=== PATIENT | female | born 1975 | race Two or more races ===

== ENCOUNTER 2018-04-07 06:18 | Inpatient (IN) | payer OTHER ==
[~2018-04-07] VITALS: Ht 149.9 cm; Wt 83.5 kg
[2018-04-07] VITALS (16 sets, daily range): BP systolic 105–137; BP diastolic 63–88
[2018-04-07] MEDS ORDERED: NKM (06:59)
[2018-04-07] MEDS ORDERED: ceFAZolin sod 1 GM in NS 55 ML IVPB ONE (07:00)
[2018-04-07] MEDS ORDERED: Thrombin 5000 units TOPIC ONE (07:04)
[2018-04-07] MEDS ORDERED: Bupivacaine w/Epi 0.5% 30ml Vial INJ ONE (07:04)
[2018-04-07] MEDS ORDERED: Bacitracin 50000 Units Vial ONE (07:04)
[2018-04-07] MEDS ORDERED: Gelfoam Size TOPIC ONE (07:04)
[2018-04-07] MEDS ORDERED: Zemuron 50mg/5ml Inj IV ONE (07:04)
[2018-04-07] MEDS ORDERED: Bupivacaine w/Epi 0.25% 30ml Vial INJ ONE (07:05)
[2018-04-07] MEDS ORDERED: Heparin 5000 units/ml inj ONE (07:06)
[2018-04-07] MEDS ORDERED: LR 1000ml 1,000 ML IVLG SCH (07:07)
--- NOTE | 2018-04-07 07:11 | Anethesia Preoperative Eval ---
Anesthesia Pre-op PMH/ROS General Date of Evaluation: Apr 07, 2018 Time of Evaluation: 07:51 Anesthesiologist: Scott ASA Score: ASA 2 Mallampati Score Class I : Soft palate, uvula, fauces, pillars visible Class II: Soft palate, uvula, fauces visible Class III: Soft palate, base of uvula visible Class IV: Only hard plate visible Mallampati Classification: Class I Surgeon: Marissa Diagnosis: Back Pain Surgical Procedure: ALIF, PSF L5-S1 Anesthesia History: none Family History: no anesthesia problems Allergies: Coded Allergies: No Known Allergies (Unverified , 04/07/18) Medications: see eMAR Patient NPO?: Yes NPO Date: Apr 06, 2018 NPO Time: 2200 Past Medical History Cardiovascular: Reports: HTN Other: obesity - BMI 37 PSxH Narrative: Cholecystectomy Anesthesia Pre-op Phys. Exam Physician Exam Last Vital Signs Date Time Temp Pulse Resp B/P (MAP) Pulse Ox O2 Delivery O2 Flow Rate FiO2 04/07/18 06:45 Room Air 04/07/18 06:40 97.4 69 18 137/88 (104) 99 Constitutional: NAD Neurologic: CN 2-12 intact Cardiovascular: RRR Respiratory: CTA Gastrointestinal: S/NT/ND Airway Exam Mallampati Score: Class I MO: full ROM: full Teeth: intact Anesthesia Pre-op A/P Risk Assessment & Plan Assessment: ASA 2 Plan: GA, SED, GlideScope Go Status Change Before Surgery: No Pre-Antibiotics Dru Grams Ancef IV Time Given: 08:06 Jamie Chavez MD Apr 07, 2018 07:11
[2018-04-07] MEDS ORDERED: Atropine Sulfate 0.4mg/ml inj IVP PRN (07:15)
[2018-04-07] MEDS ORDERED: oxyCODONE HCL/Acetaminophen 5/325mg ORAL PRN (07:15)
[2018-04-07] MEDS ORDERED: Acetaminophen (Non formulary) 100 ML IV ONE (07:15)
[2018-04-07] MEDS ORDERED: HYDROcodone/Acetamin 7.5/325 tab ORAL PRN (07:15)
[2018-04-07] MEDS ORDERED: DiphenhydrAMINE 50mg/ml Inj IVP PRN (07:15)
[2018-04-07] MEDS ORDERED: Midazolam 2mg/2ml Inj IVP PRN (07:15)
[2018-04-07] MEDS ORDERED: Norco 5mg/325mg tab ORAL PRN (07:15)
[2018-04-07] MEDS ORDERED: Metoclopramide 10mg/2ml Inj IVP PRN ×2 (07:15→14:15)
[2018-04-07] MEDS ORDERED: Ketorolac 30mg Inj IV PRN ×2 (07:15)
[2018-04-07] MEDS ORDERED: fentaNYL 100 mcg/2 mL IV PRN (07:15)
[2018-04-07] MEDS ORDERED: LORazepam Inj 2mg/ml 1ml IV PRN (07:15)
[2018-04-07] MEDS ORDERED: Hydromorphone 0.5mg/0.5ml inj IVP PRN (07:15)
[2018-04-07] MEDS ORDERED: Meperidine 50mg/ml Inj(FOR RIGORS ONLY) IVP PRN (07:15)
[2018-04-07] MEDS ORDERED: Lidocaine 1% MPF 10mg/ml 5ml ONE (07:27)
[2018-04-07] MEDS ORDERED: Dexamethasone 4mg/ml vial ONE (07:27)
[2018-04-07] MEDS ORDERED: Sodium Chloride 10ml vial INJ ONE (07:27)
[2018-04-07] MEDS ORDERED: fentaNYL 100 mcg/2 mL IV ONE ×3 (07:30→12:57)
[2018-04-07] MEDS ORDERED: Lidocaine 1% Plain 30 ml INJ ONE ×2 (07:31→10:30)
--- NOTE | 2018-04-07 07:47 | Immediate Post-Op Evaluation ---
Immediate Post-Op Evalulation Immediate Post-Op Evalulation Procedure: BISHOP CALDERON L5-S1 Date of Evaluation: Apr 07, 2018 Time of Evaluation: 13:55 IV Fluids: 900 LR Blood Products: 0 Estimated Blood Loss: 125 Urinary Output: 300 Blood Pressure Systolic: 119 Blood Pressure Diastolic: 73 Pulse Rate: 78 Respiratory Rate: 16 O2 Sat by Pulse Oximetry: 100 Temperature (Fahrenheit): 98.6 Pain Score (1-10): 2 Nausea: No Vomiting: No Complications 0 Patient Status: awake, reacts, patent, extubated, none Hydration Status: adequate Dru Grams Ancef IV Given Within 1 Hr of Incision: Yes Time Given: 08:06 Jamie Chavez MD Apr 07, 2018 07:47
[2018-04-07] MEDS ORDERED: Propofol 200mg/20ml IV ONE (07:51)
[2018-04-07] MEDS ORDERED: Sterile Water Irrig 1000ml IRRIG ONE (07:51)
[2018-04-07] MEDS ORDERED: NS Irrig 1000ml ONE (07:51)
--- NOTE | 2018-04-07 08:13 | Pre-Procedure Note/Attestation ---
Pre-Procedure Note/Attestation Complete Prior to Procedure Procedure Narrative: L5s1 ant post fusion with decompression Indications for Procedure Pre-Operative Diagnosis: L5s1 spodylolytic spondylolisthesis Attestation I attest that I discussed the nature of the procedure; its benefits; risks and complications; and alternatives (and the risks and benefits of such alternatives ), prior to the procedure, with the patient (or the patient's legal commercial representative). I attest that, if there was a reasonable possibility of needing a blood transfusion, the patient (or the patient's legal commercial representative) was given the [facility] standardized written summary, pursuant to the Sergey Anthony Blood Safety Act ([place] Health and Safety Code # 1645, as amended). I attest that I re-evaluated the patient just prior to the surgery and that there has been no change in the patient's H&P, except as documented below: Bran Ann MD Apr 07, 2018 08:13
--- NOTE | 2018-04-07 10:15 | Consultation ---
DATE OF CONSULTATION: 04/07/2018 VASCULAR SURGERY CONSULTATION CONSULTING PHYSICIAN: Armen Montanez M.D. HISTORY OF PRESENT ILLNESS: The patient is a 42-year-old female, who was admitted to undergo anterior lumbar interbody fusion of L5-S1 as determined by her spine surgeon, Dr. rBan Ann. Prior to today, the patient had received at her home my separate informed consent form, which introduced me and explained my role in the approach for the anterior lumbar spine surgery. It also outlined the possible risks and complications including, but not limited to hemorrhage, need for blood transfusions, wound infection, bowel or ureter injury, arterial or venous injury or thrombosis, and the remote chance of , etc. The patient read the form, signed it, and sent it back to my office. In addition, I telephoned the patient where the procedure was discussed. Today, she was seen in the preoperative holding area with the content of the form were again reviewed and any further questions were answered. She was shown the site of the incision. She had palpable bilateral dorsalis pedis pulses. She was 4 feet 11 inches tall, weighing approximately 172 pounds, giving her a BMI of 35. Her hematocrit was 37 with a platelet count of 255,000. Her INR was 1.1 with a PTT of 23 seconds. That consent was signed once again with a nurse witnessed and signature as well and then placed into the chart. She fully understood and wished to proceed. Armen Montanez M.D. DR: MEGHAN JOB#: [id number] CC:
[2018-04-07] MEDS ORDERED: Vancomycin 1gm inj IVPB ONE (10:16)
--- NOTE | 2018-04-07 10:59 | Brief Operative Note ---
Immediate Post Operative Note Operative Note Pre-op Diagnosis: L5s1 spodylolytic spondylolisthesis Procedure: L5S1 ant Post fusion with decompression Post-op Diagnosis: same as pre-op Findings: consistent w/pre-op dx studies Surgeon: josefina Additional Surgeons: claudia Anesthesiologist: jia dunbar Anesthesia: general Specimen: yes Complications: none Condition: stable Fluids: 1200 Estimated Blood Loss: volume - 150 Drains: none Implant(s) used?: Yes - 4web cage, spinal element Pedicle screw system Bran Ann MD Apr 07, 2018 10:59
[2018-04-07] MEDS ORDERED: Milk of Magnesia 30ml Ud ORAL PRN (14:15)
[2018-04-07] MEDS ORDERED: D5 1/2NS 1,000 ML IV SCH (15:20)
--- NOTE | 2018-04-07 15:45 | Operative Note - Dictated ---
DATE OF OPERATION: 04/07/2018 OPERATION: 1. Muscle sparing anterior abdominal retroperitoneal approach for anterior lumbar interbody fusion. 2. Plastic closure repair of abdominal wound. CO-SURGEONS: 1. Armen Montanez M.D. 2. Bran Ann M.D. ANESTHESIA: General PREOPERATIVE DIAGNOSIS: Degenerative disk disease, L5-S1. POSTOPERATIVE DIAGNOSIS: Degenerative disk disease, L5-S1. PROCEDURE: Prior to surgery, the patient had received at her home my separate informed consent form which introduced me and explained my role in the approach for the anterior lumbar spine surgery. It also outlined the possible risks and complications, including, but not limited to hemorrhage, need for blood transfusions, wound infection, bowel or ureter injury, arterial or venous injury or thrombosis, and the remote chance of etc. The patient read the form, signed it and sent it back to my office. In addition, I telephoned the patient where the procedure was discussed. Today, she was seen in the preoperative holding area with the content of the form were again reviewed and any further questions were answered. She was shown the site of the incision. She had palpable bilateral dorsalis pedis pulses. That consent was signed once again with a nurse witness and signature as well and then placed into the chart. She fully understood and wished to proceed. A preoperative vascular surgery consultation report was dictated. DESCRIPTION OF PROCEDURE: The patient was taken into the operating room, placed in supine position. Using an endotracheal tube, she was placed under general anesthesia without difficulty. Her abdomen was prepped and draped in usual sterile manner. An appropriate time-out was obtained. A transverse incision was made in the left lower quadrant from the midline and carried down through the subcutaneous tissue down to the rectus fascia. Hemostasis was achieved using electrocautery. The rectus fascia was incised transversely and elevated off the anterior surface of the muscle for a distance of approximately 4 cm both caudad and cephalad. This would allow for retraction of the rectus muscle laterally later in the case in order to obtain direct anterior-posterior approach to the anterior surface of the spine. The inferior epigastric vessels were identified and preserved. Laterally, the retroperitoneal space was entered down to the left psoas muscle. The left ureter was identified and protected as it was mobilized with the peritoneum more medially until the left iliac artery was identified. Deep self-retaining retractors such as Cowley and Bookwalter were utilized to hold the abdominal wall and peritoneal contents in place while further dissection was carried out. The capsule blunt dissection was carried out below the bifurcation of the iliac vessels with several medial branches of the iliac vein were taken between hemoclips and transected. The middle sacral artery was taken between hemoclips and transected. Careful blunt dissection was carried out to preserve the sympathetic chains laterally as well as the parasympathetic plexus which lies anteriorly along the surface of the fifth lumbar vertebra. Further careful blunt dissection was utilized to expose the anterior surface of the multiple vertebral bodies and intervening disk space. Several retractor blades were now placed in all quadrants with the rectus muscle now retracted laterally, which allowed exposure and direct anterior-posterior approach to the anterior surface of the spine. The spine surgeon then proceeded to perform diskectomy and fusion which would be dictated in a separate report by the spine surgeon, Dr. Ann. Antibiotic irrigation had been carried out. The retractor blades were removed. The integrity of the iliac vessels were then checked to make sure that there was no tear or thrombosis of the vein and that there was adequate flow through the artery with no evidence of spasm or thrombosis. A further check for hemostasis was made and the integrity of the ureter was verified. The peritoneum was allowed to return to its anatomical location and then the anterior rectus sheath approximated using continuous running suture of number 1 Vicryl. The subcutaneous tissues were irrigated using dilute Betadine solution as well as antibiotic solution. Hemostasis noted to be achieved. Vancomycin powder was left in the wound. Plastic closure repair of the abdominal wound was continued using 2-0 Vicryl followed by skin approximation using continuous subcuticular suture of 3-0 Monocryl. Steri-Strips were applied. Dry sterile gauze OpSite dressings were applied. The sponge, pad, needle, and instrument counts reported as correct. Estimated blood loss was less than 50 mL. There were no complications during this part of the procedure. At completion of this part of the procedure, the patient had maintenance of palpable bilateral dorsalis pedis pulses and the pulse oximeter registered 99% on the left foot. The patient will remain in the operating room, undergo posterior instrumentation by the spine surgeon. Armen Montanez M.D. DR: Jose JOB#: [id number] CC:
[2018-04-07] MEDS: ceFAZolin sod 1 GM in D5W 55 ML IV SCH (15:57)
--- NOTE | 2018-04-07 16:30 | Operative Note - Dictated ---
DATE OF OPERATION: 04/07/2018 PREOPERATIVE DIAGNOSIS: Spinal foraminal stenosis with unstable spondylolisthesis at L5-S1. POSTOPERATIVE DIAGNOSIS: Spinal foraminal stenosis with unstable spondylolisthesis at L5-S1. PROCEDURES: 1. Wide and radical diskectomy at L5-S1 performed through an anterior approach for decompression of neural foramen. 2. Placement of interbody fusion device (4-WEB). 3. Anterior instrumentation with kickout plate Eminent Spine. 4. Use of BMP for fusion purposes. 5. Use of allograft (Signafuse). 6. Use of fluoroscopy. 7. Neurodiagnostic monitoring. ESTIMATED BLOOD LOSS: Minimal. SURGEON: Bran Ann M.D. VASCULAR CO-SURGEON: Armen Montanez M.D. ANESTHESIOLOGIST: Jamie Chavez M.D. ANESTHESIA TYPE: General endotracheal anesthesia. COMPLICATIONS: None. INDICATIONS: The patient is a very pleasant woman with intractable back pain. She does have radicular symptoms into the lower extremities, primarily on the right side. Conservative care has been attempted; however, despite this, she remains with mechanical back pain and radiating symptoms. She does have a unstable spondylolisthesis, spondylolytic type at the L5-S1 level. Surgical intervention was contemplated and she elected to proceed. RISKS NOTE: The patient was explained in detail risks, benefits of surgery to include, but not be limited to those of bleeding, infection, damage to nerves, vessels, tendons, anesthetic risk, allergic reaction, aspiration, possibly . The patient understood and wished to proceed. OPERATIVE PROCEDURE IN DETAIL: The patient was taken the operating suite after Garcia catheter was placed. She was positioned supine onto a radiolucent table. The abdomen was prepped and draped in usual sterile fashion. Anterior transverse incision was performed by Dr. Montanez and approach will be dictated separately by him. At this point, retractors were placed in the crotch of the common iliac vessels flanking either side of the disk at L5-S1. The L5-S1 level was verified radiographically. A scalpel was used to incise the anterior anulus of L5 and S1. End-plate Jeffries and curettes were used to debulk the disk all the way down to the posterior longitudinal ligament. Posterior anulus was removed. Kerrison punches as well as curettes were used with pituitaries to remove all disk material. At this point, the endplates were prepared using endplate rasps and a back hoe. At this point, once satisfied with the endplate preparation, multiple different sized implants were trialed. Please note that the patient does have a spondylolytic type of spondylolisthesis and every attempt was made not to over distract the disk space. Please note however that the bony apposition was very very difficult to obtain with an undersized implants and ultimately a 12 degree x 12 mm high medium-size implant was chosen. The implant manufactured by [employer] was packed centrally with a combination of BMP and Signafuse. Once the implant was inserted, it was noted to have a reasonable friction fit. At this point, a anterior plate was applied at L5 under fluoroscopic imaging in order to prevent dislodgement of the implant. Copious irrigation was performed. The procedure was performed under image guidance. Once ready to close the vascular surgeon, Dr. Montanez then proceeded to doing multiple layered closure, which will be dictated separately. Estimated blood loss minimal. Complications, none. Bran Mian Ann DR: Renny JOB#: [id number] CC:
[2018-04-07] MEDS: Hydromorphone 0.5mg/0.5ml inj SUBQ PRN (16:35)
[2018-04-07] MEDS: Docusate 100mg cap ORAL SCH (17:48)
[2018-04-07] MEDS ORDERED: TransDerm Scop 1mg/72HR Patch TDERMAL SCH ×2 (19:00→19:15)
--- NOTE | 2018-04-07 20:15 | Operative Note - Dictated ---
DATE OF OPERATION: 04/07/2018 SURGEON: Bran Ann M.D. FINGER WAVER: None. ANESTHESIOLOGIST: Jamie Chavez M.D. ANESTHESIA TYPE: General endotracheal anesthesia. PREOPERATIVE DIAGNOSIS: Unstable spondylolisthesis at L5-S1, status post anterior diskectomy fusion requiring posterior stabilization. POSTOPERATIVE DIAGNOSIS: Unstable spondylolisthesis at L5-S1, status post anterior diskectomy fusion requiring posterior stabilization. PROCEDURE: 1. Posterior spinal fusion, nonsegmental at L5-S1, using cannulated pedicle screw system (spinal elements). 2. Posterior spinal fusion at L5-S1. 3. Bilateral foraminotomy at L5-S1 from an outside-in approach. 4. Use of fluoroscopy. 5. Neurodiagnostic monitoring with pedicle screw stimulation. 6. Use of allograft (Bacterin bone strip). ESTIMATED BLOOD LOSS: Minimal. COMPLICATIONS: None. FINDINGS: Stable fixation at L5-S1 bilaterally with excellent foraminal decompression. INDICATIONS: The patient is a 42-year-old with unstable spondylolisthesis. She underwent prior anterior fixation. Unfortunately, she was still deemed to be unstable and a posterior fixation would be required. The patient understood and wished to proceed. OPERATIVE PROCEDURE IN DETAIL: Under benefits of general anesthesia, the patient was turned prone onto a Jimmy frame. All bony prominences were well padded. The back was prepped and draped in usual sterile fashion. Under fluoroscopic guidance, L5-S1 level was marked out, 6 cm lateral of midline and a vertical incision was made after the skin was infiltrated with lidocaine and Marcaine with epinephrine. Incision was carried out through subcutaneous and a traditional Zara approach was used. The interval between the longissimus and multifidus muscles were identified and a blunt dissection was carried out between these two after the fascia had been incised with the Bovie. Blunt dissection allowed for palpation of the transverse process of L5 and sacral ala. Radiographically, this was verified. Self-retaining retractors were put in place. Soft tissue overlying the bone and periosteum of the transverse process and sacral ala were removed with Bovie. Drilling was allowed for fusion purposes. At this point, using anatomic and fluoroscopic landmarks, the pedicle screw of L5 and S1 were serially drilled, probed, and palpated with a ball tip probe, tapped and the appropriate size pedicle screws were placed. Please note that prior to final placement of the screws, a curved curette was utilized to remove the ligamentum adjacent to the neural foramen. The Kerrison punch was then utilized in combination with a high-speed drill to drill out the lateral portion of the facet and the undersurface of the facet/foramen was removed with Kerrison punch, which allowed for excellent lateral decompression of the foramen. The foramen was probed with a right-angled probe and noted to be completely patent at this point. FloSeal was applied. Hemostasis was achieved. Appropriate sized screws were placed through the bone graft, which was deployed between the screw head and the bony bed for which the bone graft was applied to. At this point, copious irrigation was performed once satisfied with this pedicle screw stimulation tested that the screws were appropriately placed. The S1 screw impedance was at 14, however, radiographically was okay and it was felt to be an appropriate screw placement. At this point, the appropriate sized mari was applied. Reduction maneuver was achieved. Both locking caps were applied and torqued to the appropriate levels. Reduction and compression was achieved using a in situ compressor. The L5 screw head was also then tightened and torqued to the appropriate level. Once satisfied with the construct, copious irrigation was performed and layered closure was performed using #1 Vicryl through the deep fascia as well as superficial fascia and subcutaneous closure using 2-0 Vicryl. Dermabond was applied. Attention was then turned to the left side and in an identical fashion, incision was made, approach was made, retractors were placed, decompression was achieved, screws were applied, and tested and locking cap was applied. Overall, the final closure was also performed in similar fashion. After copious irrigation was achieved, final closure was completed. Dermabond was applied to both wounds. Sterile dressing was applied. Tegaderm dressing was applied. The patient was then turned onto her back, awakened, extubated, and transferred to recovery room in stable condition. Bran Ann M.D. DR: KRUNAL JOB#: [id number] CC: [email or web address]
[2018-04-07 20:27] LABS: HEMATOCRIT 36.5 % (37.0-47.0); HEMOGLOBIN 12.1 G/DL (12.0-16.0); MEAN CORPUSCULAR VOLUME 77 FL (80-99); PLATELET COUNT 275 K/UL (150-450); RED BLOOD COUNT 4.75 M/UL (4.20-5.40); RED CELL DISTRIBUTION WIDTH 11.9 % (11.6-14.8); WHITE BLOOD COUNT 12.8 K/UL (4.8-10.8)
--- NOTE | 2018-04-07 20:32 | Cardiology Progress Note ---
Assessment/Plan Assessment/Plan doing well post op needs to ambuaote when allow eat adn have bm subsequently dc accuchjeks ordered [id number] Objective Last 24 Hour Vital Signs Date Time Temp Pulse Resp B/P (MAP) Pulse Ox O2 Delivery O2 Flow Rate FiO2 04/07/18 20:18 98.1 77 19 116/65 (82) 99 04/07/18 17:45 98.2 73 17 112/63 (79) 99 04/07/18 16:45 97.4 73 16 106/68 (81) 98 04/07/18 15:45 98.4 85 19 105/63 (77) 99 04/07/18 15:15 Nasal Cannula 3.0 Nasal Cannula 3.0 04/07/18 15:15 98.6 89 18 118/66 (83) 98 04/07/18 14:54 88 18 115/74 100 Nasal Cannula 3 04/07/18 14:45 98.4 88 16 123/79 100 Nasal Cannula 3 04/07/18 14:40 82 19 115/72 100 Nasal Cannula 3 04/07/18 14:30 88 14 121/74 100 Nasal Cannula 3 04/07/18 14:25 93 19 128/74 100 Nasal Cannula 3 04/07/18 14:15 99 17 126/79 100 Simple Mask 6 04/07/18 14:00 83 16 125/77 100 Simple Mask 6 04/07/18 13:55 84 18 125/76 100 Simple Mask 6 04/07/18 13:50 89 22 123/74 100 Simple Mask 6 04/07/18 13:44 98.6 78 16 119/73 100 Simple Mask 6 04/07/18 13:42 78 16 100 04/07/18 06:45 Room Air 04/07/18 06:40 97.4 69 18 137/88 (104) 99 Intake and Output 04/06/18 04/07/18 19:00 07:00 # Voids 1 Laboratory Tests Test 04/07/18 06:25 04/07/18 20:20 Urine HCG, Qualitative Negative (NEGATIVE) White Blood Count Pending Red Blood Count Pending Hemoglobin Pending Hematocrit Pending Mean Corpuscular Volume Pending Mean Corpuscular Hemoglobin Pending Mean Corpuscular Hemoglobin Concent Pending Red Cell Distribution Width Pending Platelet Count Pending Mean Platelet Volume Pending Neutrophils (%) (Auto) Pending Lymphocytes (%) (Auto) Pending Monocytes (%) (Auto) Pending Eosinophils (%) (Auto) Pending Basophils (%) (Auto) Pending Sodium Level Pending Potassium Level Pending Chloride Level Pending Carbon Dioxide Level Pending Blood Urea Nitrogen Pending Creatinine Pending Estimat Glomerular Filtration Rate Pending Glucose Level Pending Calcium Level Pending Joshua Armas MD Apr 07, 2018 20:32
[2018-04-07 20:40] LABS: ANION GAP 8 mmol/L (5-15); BLOOD UREA NITROGEN 9 mg/dL (7-18); CALCIUM 8.4 MG/DL (8.5-10.1); CARBON DIOXIDE 28 MMOL/L (21-32); CHLORIDE 104 MMOL/L (98-107); CREATININE 0.8 MG/DL (0.55-1.30); POTASSIUM 4.8 MMOL/L (3.5-5.1); SODIUM 139 MMOL/L (136-145)
[2018-04-07] MEDS: LR 1000ml 1,000 ML IVLG SCH (21:00)
[2018-04-07] MEDS: Insulin NovoLOG Flexpen S/S (insulin sensitive) SUBQ SCH (21:08)
[2018-04-07] MEDS ORDERED: oxyCODONE 5mg IR tab ORAL PRN (21:45)
--- NOTE | 2018-04-07 22:15 | Consultation ---
DATE OF CONSULTATION: 04/07/2018 INTERNAL MEDICINE CONSULTATION REFERRING PHYSICIAN: Bran Ann M.D. REASON FOR REFERRAL: Postoperative medical care. HISTORY OF PRESENT ILLNESS: This is a middle-aged female who has a history of lumbar spine pain. She underwent surgery by Dr. Ann today. She is being seen postoperatively. She did have some dizziness early, but that has gone. No nausea. At this point, no chest pain or shortness of breath. No palpitations. No discomfort of any kind in the chest. PAST MEDICAL HISTORY: Positive for history of gestational diabetes. Otherwise, no other medical problems. SURGICAL HISTORY: Negative. FAMILY HISTORY: Father . Mother alive. SOCIAL HISTORY: Nonsmoker. No alcohol. No drugs. ALLERGIES: No known drug allergies. REVIEW OF SYSTEMS: GASTROINTESTINAL: As mentioned, no nausea, vomiting, or diarrhea. No bowel movements. GENITOURINARY: There is no discomfort on urination. PULMONARY: Denies any coughing or wheezing. CONSTITUTIONAL: Negative. PHYSICAL EXAMINATION: GENERAL: Shows to be overweight middle-aged female, in no respiratory distress. NECK: Supple. No jugular venous distention. No abdominojugular reflux noted. LUNGS: Clear to auscultation and percussion. CARDIAC: S1 is normal. S2 is normal. Regular rate and rhythm. No heaves or thrills noted. ABDOMEN: Abdomen is soft and obese. Positive bowel sounds. Dressing in place in the lower abdomen. EXTREMITIES: There is no edema. Pneumatic compression stockings are in place. LABORATORY DATA: No postoperative labs available. Preop labs were noted in the chart. Her blood sugar was 202, BUN of 6, creatinine 0.6, and sodium 136. TSH is 0.56. Hemoglobin A1c of 7.1. BNP of 24. Sedimentation rate of 15. White count 4.6, hemoglobin 12.6, and platelet count of 255,000. Echocardiogram showed normal sinus rhythm. ASSESSMENT AND PLAN: 1. Lumbar pain, now status post surgery. 2. History of gestational diabetes. 3. Hyperglycemia on preoperative blood testing. This patient was seen in the Internal Medicine consultation. She doing relatively well. Hemodynamically, she appears to be relatively stable. I have asked that her blood sugars to be checked before meals and at bedtime, but no sliding scale provided yet until we find out what her blood sugars are postoperatively. She will require DVT prophylaxis with the use of pneumatic compression stockings. Incentive spirometry recommended. The patient is to ambulate as soon as allowed by Orthopedic Surgery. Once she has bowel movements, she is able to eat and is able to ambulate, she will be discharged per the discretion of Orthopedic Surgery, Dr. Ann. Joshua Armas M.D. DR: MARGI JOB#: [id number] CC:
[2018-04-08] MEDS: Hydromorphone 0.5mg/0.5ml inj SUBQ PRN ×2 (00:12→08:16)
[2018-04-08] MEDS: ceFAZolin sod 1 GM in D5W 55 ML IV SCH ×2 (00:12→08:16)
[2018-04-08 00:13] VITALS: BP 120/70
--- NOTE | 2018-04-08 02:45 | Consultation ---
DATE OF CONSULTATION: 04/07/2018 CONSULTING PHYSICIAN: Archie Ingram M.D. REFERRING PHYSICIAN: Bran Ann M.D. REASON FOR CONSULTATION: Acute pain consult. Dear Dr. Bran Ann, Thank you kindly for consulting me to evaluate and render an opinion as to how to proceed in the management of the patient's acute postoperative lumbar spine pain after extensive multilevel anterior-approach and posterior-approach lumbar spine fusion surgery with instrumentation today. The patient is a 42-year-old obese woman who injured her lumbar spine in work-related injury. After today's extensive lumbar spine fusion surgery, you consulted me to help with her pain control and severe postoperative nausea and vomiting. I saw the patient at bedside with the nurse, RADHA Siddiqui. I discussed the case with the charge nurse, RADHA Mcmillan, along with the hospital pharmacist, Jaylon. I spent over 75 minutes in consultation with an additional 30 minutes in medical record review. I reviewed multiple records from the patient's hospital course and record including utilization review and surgical authorization by the insurance carrier authorizing surgery as certified. I reviewed multiple preoperative records from Dr. Bran Ann including PAR-2 progress report dated October 30, 2017. I reviewed detailed history and physical from Dr. Bravo including multiple diagnostic testing including laboratory studies, a 12-lead EKG, a chest x-ray, and MRI of the lumbar spine reports. I reviewed multiple records from today's date of surgery at [facility] including from April 07, 2018, including consent for surgical treatment, consent for anesthesia, consent for blood products, medication administration record, medication reconciliation order form, PACU record, PACU orders, anesthesia record, pre- and post-anesthesia evaluation record, guidelines for prophylactic antibiotics, guidelines for DVT prophylaxis, postoperative spine surgery orders, postoperative surgery report by Dr. Bran Ann, implant logs, 24-hour medical/surgical flow sheet, and initial nursing assessment. PAST MEDICAL HISTORY: 1. Acute postoperative lumbar spine pain, status post lumbar spine fusion surgery with instrumentation by Dr. Bran Ann. 2. Severe postoperative nausea and vomiting. 3. Work-related injury. 4. Obesity. 5. Diabetes. FAMILY HISTORY: Obesity. ALLERGIES: No known drug allergies. SOCIAL HISTORY: The patient denies tobacco, alcohol, or illicit drug use. She is accompanied at the bedside by her boyfriend. REVIEW OF SYSTEMS: Per Dr. Armas PHYSICAL EXAMINATION: VITAL SIGNS: Age 42, height 4 feet 11 inches, weight 78 kg, and body-mass index 35. Afebrile, pulse 73, respirations 16, blood pressure 106/68, and oxygen saturation on supplemental oxygen. NEUROLOGIC: Detailed neurologic exam per Dr. Bran Ann. Garcia catheter in place. Moving all extremities x4. MUSCULOSKELETAL: Significant discomfort with range of motion or deep breathing. HEART: Regular rate and rhythm. ABDOMEN: Mildly distended. Tender by incision area with significant pain with log-rolling. BREASTS: Deferred. GENITOURINARY: Deferred. LABORATORY AND DIAGNOSTIC DATA: Laboratory studies from March 31, 2018, shows glucose 202, sodium 136, potassium 4.0, chloride 101, bicarbonate 19, BUN 6, creatinine 0.6, calcium 9.1, total protein 7.4, albumin 4.2, AST 15, ALT 20, alkaline phosphatase 94, total bilirubin 0.3. TSH 0.6. Glycosylated hemoglobin A1c abnormally high at 7.1. White count 5, hematocrit 37, platelets 285,000. INR 1.1 and PTT 23. A 12 lead EKG, normal sinus rhythm, ventricular rate 65; no evidence for acute cardiac ischemia. Preoperative chest x-ray shows no evidence for acute cardiopulmonary disease dated March 31, 2018. IMPRESSION: 1. Acute postoperative lumbar spine pain, status post lumbar spine fusion surgery with instrumentation by Dr. Bran Ann. 2. Severe postoperative nausea and vomiting. 3. Work-related injury. 4. Obesity. 5. Diabetes. TREATMENT RECOMMENDATIONS: The patient is having severe nausea and vomiting after her lumbar spine fusion surgery, via the anterior-approach. She has failed trials of both Zofran and Reglan. I have asked the nursing team to dose her with Phenergan 12.5 mg intramuscularly, which I will every 8 hours p.r.n. for refractory nausea. I also have ordered scopolamine patch to be placed. The patient denies any glaucoma symptoms preoperatively. Due to severe nausea, I would restrict analgesics to parenteral narcotics for now. I have put a frequent dose of subcutaneous Dilaudid 0.5 mg every 2 hours p.r.n. Once the nausea improves, I will then trial her on oral analgesics. The patient does not use narcotics regularly at home, but she believes she has a supply already at home. I have asked her to call her daughter at home to see which narcotics are available for home usage, so we can trial these medications here in the hospital once her diet is advanced. I have asked Dr. Armas to evaluate and treat her elevated serum glucose levels. The patient states that she is prediabetic, however, preoperative laboratory studies clearly show that she is diabetic. Her fasting glucose was 202 with glycosylated hemoglobin abnormally high at 7.1. I demonstrated proper use of incentive spirometer to encourage good pulmonary toilet. The patient does have sequential compression pneumatic devices in place already per the surgeon, for DVT prophylaxis. Archie Ingram M.D. DR: ANEL JOB#: [id number] CC:
[2018-04-08 04:17] VITALS: BP 114/65
[2018-04-08] MEDS: LR 1000ml 1,000 ML IVLG SCH ×2 (04:40→12:20)
[2018-04-08] MEDS: Insulin NovoLOG Flexpen S/S (insulin sensitive) SUBQ SCH ×4 (06:39→21:46)
[2018-04-08 08:00] VITALS: BP 108/63
[2018-04-08] MEDS: Docusate 100mg cap ORAL SCH ×2 (08:17→17:24)
--- NOTE | 2018-04-08 08:31 | Orthopedic Spine Progress Note ---
Ortho Spine - Progress Note Subjective Symptoms: c/o post-op back pain, improved - as compared to pre-op Objective Vital Signs: Last 24 Hour Vital Signs Date Time Temp Pulse Resp B/P (MAP) Pulse Ox O2 Delivery O2 Flow Rate FiO2 04/08/18 04:17 99.0 78 16 114/65 (81) 99 04/08/18 00:13 98.2 79 18 120/70 (87) 98 04/07/18 21:00 Nasal Cannula 3.0 Nasal Cannula 3.0 04/07/18 20:18 98.1 77 19 116/65 (82) 99 04/07/18 17:45 98.2 73 17 112/63 (79) 99 04/07/18 16:45 97.4 73 16 106/68 (81) 98 04/07/18 15:45 98.4 85 19 105/63 (77) 99 04/07/18 15:15 Nasal Cannula 3.0 Nasal Cannula 3.0 04/07/18 15:15 98.6 89 18 118/66 (83) 98 04/07/18 14:54 88 18 115/74 100 Nasal Cannula 3 04/07/18 14:45 98.4 88 16 123/79 100 Nasal Cannula 3 04/07/18 14:40 82 19 115/72 100 Nasal Cannula 3 04/07/18 14:30 88 14 121/74 100 Nasal Cannula 3 04/07/18 14:25 93 19 128/74 100 Nasal Cannula 3 04/07/18 14:15 99 17 126/79 100 Simple Mask 6 04/07/18 14:00 83 16 125/77 100 Simple Mask 6 04/07/18 13:55 84 18 125/76 100 Simple Mask 6 04/07/18 13:50 89 22 123/74 100 Simple Mask 6 04/07/18 13:44 98.6 78 16 119/73 100 Simple Mask 6 04/07/18 13:42 78 16 100 I&O: Intake and Output 04/07/18 04/08/18 18:59 06:59 Intake Total 1150 ml 1667.5 ml Output Total 825 ml 600 ml Balance 325 ml 1067.5 ml Intake IV Total 1150 ml 1667.5 ml Output Urine Total 700 ml 600 ml Estimated Blood Loss 125 ml # Voids 1 Wound: clean, intact Drains: none Neuro Status: normal Assessment Procedure Performed: L5S1 ant Post fusion with decompression Plan Plan: PT, pain management, discharge plan Bran Ann MD Apr 08, 2018 08:31
--- NOTE | 2018-04-08 09:59 | 48 Hour Post Anesthesia Eval ---
Post Anesthesia Evaluation Procedure: ALIF, PSF L5-S1 Date of Evaluation: Apr 08, 2018 Time of Evaluation: 06:50 Blood Pressure Systolic: 114 0: 65 Pulse Rate: 78 Respiratory Rate: 16 Temperature (Fahrenheit): 99 O2 Sat by Pulse Oximetry: 99 Airway: patent Nausea: No Vomiting: No Pain Intensity: 2 Hydration Status: adequate Cardiopulmonary Status: at baseline Mental Status/LOC: patient returned to baseline Post-Anesthesia Complications: 0 Follow-up care needed: N/A - further care as per primary team Samantha Peterson MD Apr 08, 2018 09:59
[2018-04-08 11:36] VITALS: BP 112/68
[2018-04-08] MEDS ORDERED: oxyCODONE 5mg IR tab ORAL SCH (14:56)
[2018-04-08] MEDS ORDERED: LR 1000ml 1,000 ML IVLG SCH (14:57)
[2018-04-08] MEDS ORDERED: D5 1/2NS 1,000 ML IV SCH (15:20)
[2018-04-08 15:53] VITALS: BP 110/67
[2018-04-08] MEDS: Sennosides 8.6mg tab ORAL SCH (17:24)
[2018-04-08] MEDS: oxyCODONE 5mg IR tab ORAL PRN ×2 (17:28→21:40)
[2018-04-08 20:00] VITALS: BP 135/64
--- NOTE | 2018-04-08 20:00 | Progress Note ---
DATE: 04/08/2018 ACUTE PAIN MANAGEMENT PHYSICIAN PROGRESS NOTE MEDICATIONS: Medication administration record reviewed. Medications include oxycodone, Zofran, Narcan, milk of magnesia, lactated Ringer's, Dilaudid Pepcid, Colace, Benadryl, Mylanta, Fioricet, and Tylenol. LABORATORY STUDIES: From yesterday evening, 04/07/2018 shows white count 13, hematocrit 37, and platelets 275,000. Glucose 245, calcium 8.4, sodium 139, potassium 4.8, chloride 104, bicarbonate 28, BUN 9, and creatinine 0.8. Medication administration record reviewed. Medications include IV fluids, Colace, Pepcid, and sliding-scale insulin. P.r.n. medications include Tylenol, milk of magnesia, Dilaudid, Zofran, Benadryl, Mylanta, Phenergan, Fioricet, Narcan, and oxycodone. I saw the patient at the bedside with the nurse RN, Corrie. The patient's daughter also is at the bedside to whom I provided a prescription for oxycodone and Percocet for the daughter to drop off the pharmacy later tonight. The patient already has a pharmacy card from her insurance carrier, [employer] Carlson, and I informed the patient's daughter to please drop off the prescription this evening so that the insurance carrier has time to authorize in the pharmacy and time to fill the prescription to not delay hospital discharge. The patient did tolerate oxycodone 2 hours ago. Her nausea symptoms have completely resolved after application of the scopolamine patch. Phenergan and Zofran remains available as a rescue antiemetics, but had not been necessary for the past 15 hours thankfully. The patient's Garcia catheter was removed and she has been voiding urine. She is ambulating in the hallway and she already has been passing positive flatus. Dr. Armas is following the patient's significant diabetic issues. The patient believes that she is prediabetic. However, with an elevated hemoglobin A1c, and her documented glucose readings greater than 200 on multiple occasions here in the hospital, she certainly has graduated beyond prediabetic . I will defer this issue to Dr. Armas. The patient has been placed on 800 ADA diet. She will remain on Colace and Pepcid b.i.d. Now that she is passing flatus, I will also place her on b.i.d. Senokot until a bowel movement occurs after her anterior lumbar interbody fusion surgery. The patient has been encouraged to use her incentive spirometer frequently. Archie Ingram M.D. DR: KRISH JOB#: [id number] CC:
--- NOTE | 2018-04-08 21:58 | Cardiology Progress Note ---
Assessment/Plan Assessment/Plan 1. Lumbar pain, now status post surgery. 2. History of gestational diabetes. 3. Hyperglycemia on preoperative blood testing. 4. post op fever IS use discussed with pt d/w rn blood adn urine cx ordered however likely atelectasis related fever oob ambulated await bm Subjective Cardiovascular: Denies: chest pain, irregular heart rate, lightheadedness Respiratory: Denies: cough, orthopnea, shortness of breath Gastrointestinal/Abdominal: Reports: constipated; Denies: abdominal pain, vomiting Genitourinary: Denies: burning Objective Last 24 Hour Vital Signs Date Time Temp Pulse Resp B/P (MAP) Pulse Ox O2 Delivery O2 Flow Rate FiO2 04/08/18 15:53 97.9 81 20 110/67 (81) 95 04/08/18 11:36 98.0 82 20 112/68 (83) 96 04/08/18 09:59 78 16 99 04/08/18 09:00 Room Air Room Air 04/08/18 08:00 99.1 78 16 108/63 (78) 94 04/08/18 08:00 Room Air Room Air 04/08/18 04:17 99.0 78 16 114/65 (81) 99 04/08/18 00:13 98.2 79 18 120/70 (87) 98 General Appearance: no apparent distress, alert, obese Neck: supple Cardiovascular: normal rate, regular rhythm Respiratory/Chest: chest wall non-tender, lungs clear Abdomen: normal bowel sounds, non tender, soft Extremities: no swelling Intake and Output 04/07/18 04/08/18 18:59 06:59 Intake Total 1150 ml 1667.5 ml Output Total 825 ml 600 ml Balance 325 ml 1067.5 ml IV Total 1150 ml 1667.5 ml Output Urine Total 700 ml 600 ml Estimated Blood Loss 125 ml # Voids 1 Joshua Armas MD Apr 08, 2018 21:58
[2018-04-08] MEDS ORDERED: Acetaminophen 650mg/20.3ml NG SCH (23:00)
[2018-04-08 23:36] LABS: APPEARANCE,URINE CLEAR; BILIRUBIN, URINE NEGATIVE (NEGATIVE); COLOR,URINE PALE YELLOW; GLUCOSE, URINE (UA) NEGATIVE (NEGATIVE); KETONES,URINE NEGATIVE (NEGATIVE); LEUKOCYTE ESTERASE ,URINE 2+ (NEGATIVE); NITRITE,URINE NEGATIVE (NEGATIVE); PH,URINE 8 (4.5-8.0); PROTEIN,URINE NEGATIVE (NEGATIVE); UROBILINOGEN,URINE NORMAL MG/DL (0.0-1.0)
[2018-04-09] VITALS: BP 116/66
[2018-04-09 04:00] VITALS: BP 126/66
[2018-04-09] MEDS ORDERED: Milk of Magnesia 30ml Ud ORAL PRN (06:00)
[2018-04-09] MEDS ORDERED: Magnesium Citrate Liq Btl ORAL PRN (06:00)
[2018-04-09] MEDS: Insulin NovoLOG Flexpen S/S (insulin sensitive) SUBQ SCH ×4 (06:32→21:06)
[2018-04-09] MEDS: oxyCODONE 5mg IR tab ORAL PRN (06:34)
--- NOTE | 2018-04-09 06:45 | Progress Note ---
DATE: 04/09/2018 ACUTE PAIN MANAGEMENT PHYSICIAN PROGRESS NOTE: MEDICATIONS: Medication administration record reviewed. Medications include IV fluids, Colace, Pepcid, Senokot, and sliding scale insulin. PRN medications include Tylenol, milk of magnesia, Dilaudid, Zofran, Benadryl, Mylanta, Phenergan, oxycodone, and Narcan. LABORATORY STUDIES: From 04/07/2018 shows a hematocrit 37. Glucose 245. VITAL SIGNS: Shows temperature 99.3 with a T-max of 101.3 last night at 11 p.m., current pulse 104, respirations 20, blood pressure 116/66, and oxygen saturation 96% on room air. I saw the patient at bedside. I discussed the case with the nurse RN, Jewell. The patient's boyfriend is in the room providing good social support. The patient's daughter did drop-off the prescription, which I provided for Percocet 5 mg tablets for outpatient usage. The patient appears neurologically intact grossly. Dr. Armas saw the patient yesterday evening, and Dr. Armas is addressing the fevers although Dr. Armas expects atelectasis is a likely contributor. The patient has been on Colace and Senokot. Now that she is passing flatus, she has been advanced her diet and increase in oral intake. I will Hep-Lock her IV fluids in order to encourage movement in and out of bed. I have ordered milk of magnesia to be dosed, and I have also ordered p.r.n. dose of magnesium citrate in case there is still lack of a bowel movement. The patient has been ambulating better. Incentive spirometer usage was encouraged with her recent fevers. Dr. Ann evaluated the patient earlier yesterday and was pleased with the patient's progress. I will defer discharge planning to Dr. Armas and Dr. Ann. Archie Ingram M.D. DR: LILLIANA JOB#: [id number] CC:
[2018-04-09 07:17] LABS: BASOPHILS % (AUTO) 0.4 % (0.0-2.0); HEMATOCRIT 34.4 % (37.0-47.0); HEMOGLOBIN 11.4 G/DL (12.0-16.0); LYMPHOCYTES % (AUTO) 13.7 % (20.0-45.0); MEAN CORPUSCULAR VOLUME 77 FL (80-99); MONOCYTES % (AUTO) 6.9 % (1.0-10.0); NEUTROPHILS % (AUTO) 78.9 % (45.0-75.0); PLATELET COUNT 233 K/UL (150-450); RED BLOOD COUNT 4.46 M/UL (4.20-5.40); RED CELL DISTRIBUTION WIDTH 11.9 % (11.6-14.8); WHITE BLOOD COUNT 10.1 K/UL (4.8-10.8)
[2018-04-09 07:31] LABS: ALANINE AMINOTRANSFERASE 37 U/L (12-78); ALBUMIN 2.7 G/DL (3.4-5.0); ALBUMIN/GLOBULIN RATIO 0.6 (1.0-2.7); ALKALINE PHOSPHATASE 79 U/L (46-116); ANION GAP 6 mmol/L (5-15); ASPARTATE AMINO TRANSFERASE 50 U/L (15-37); BILIRUBIN,TOTAL 0.8 MG/DL (0.2-1.0); BLOOD UREA NITROGEN 6 mg/dL (7-18); CALCIUM 8.6 MG/DL (8.5-10.1); CARBON DIOXIDE 29 MMOL/L (21-32); CHLORIDE 102 MMOL/L (98-107); CREATININE 0.6 MG/DL (0.55-1.30); SODIUM 137 MMOL/L (136-145)
[2018-04-09 08:00] VITALS: BP 119/72
[2018-04-09] MEDS: Docusate 100mg cap ORAL SCH ×2 (08:27→17:04)
[2018-04-09] MEDS: Sennosides 8.6mg tab ORAL SCH ×2 (08:27→17:04)
--- NOTE | 2018-04-09 09:07 | Diagnostic Imaging Report ---
Indication: Chest pain Technique: One view of the chest Comparison: none Findings: Inspiration is suboptimal. There is minimal atelectasis at left lung base. The lungs and pleural spaces are otherwise clear. The heart size is upper limits of normal. There are degenerative changes of the thoracic spine Impression: No acute process This agrees with the preliminary interpretation provided overnight by [facility] teleradiology service.
--- NOTE | 2018-04-09 09:19 | Orthopedic Spine Progress Note ---
Ortho Spine - Progress Note Subjective Symptoms: c/o post-op back pain, improved - as compared to pre-op Objective Vital Signs: Last 24 Hour Vital Signs Date Time Temp Pulse Resp B/P (MAP) Pulse Ox O2 Delivery O2 Flow Rate FiO2 04/09/18 08:00 98.8 97 20 119/72 (88) 96 04/09/18 06:33 99.4 04/09/18 06:30 99.4 04/09/18 04:00 101.0 84 20 126/66 (86) 97 04/09/18 00:00 99.3 104 20 116/66 (83) 96 04/08/18 22:30 101.3 04/08/18 21:30 102.5 04/08/18 21:00 Room Air Room Air 04/08/18 20:00 101.6 95 20 135/64 (87) 95 04/08/18 15:53 97.9 81 20 110/67 (81) 95 04/08/18 11:36 98.0 82 20 112/68 (83) 96 04/08/18 09:59 78 16 99 I&O: Intake and Output 04/08/18 04/09/18 19:00 07:00 Intake Total 1665 ml 550 ml Output Total 800 ml Balance 865 ml 550 ml Intake Oral 660 ml IV Total 1005 ml 550 ml Output Urine Total 800 ml # Voids 2 3 Wound: clean, intact Drains: none Neuro Status: normal Assessment Procedure Performed: L5S1 ant Post fusion with decompression Plan Plan: PT, pain management, discharge to home - if afebrile this afternoon Bran Ann MD Apr 09, 2018 09:19
[2018-04-09 12:28] VITALS: BP 142/88
[2018-04-09 16:00] VITALS: BP 134/77
[2018-04-09 20:39] VITALS: BP 114/76
--- NOTE | 2018-04-09 22:01 | Cardiology Progress Note ---
Assessment/Plan Assessment/Plan 1. Lumbar pain, now status post surgery. 2. History of gestational diabetes. 3. Hyperglycemia on preoperative blood testing. 4. post op fever IS use discussed with pt d/w rn no cx yet of blood or urine u/a was abn had fever again today will start abx for uti for now until cx availabel Subjective Cardiovascular: Denies: chest pain Respiratory: Denies: shortness of breath Gastrointestinal/Abdominal: Denies: abdominal pain Genitourinary: Denies: burning Subjective walked ate some no chills Objective Last 24 Hour Vital Signs Date Time Temp Pulse Resp B/P (MAP) Pulse Ox O2 Delivery O2 Flow Rate FiO2 04/09/18 20:39 99.8 92 19 114/76 (89) 97 04/09/18 16:07 101.3 04/09/18 16:00 100.5 95 19 134/77 (96) 95 04/09/18 12:28 101.4 83 19 142/88 (106) 99 04/09/18 09:00 Room Air Room Air 04/09/18 08:00 98.8 97 20 119/72 (88) 96 04/09/18 06:30 99.4 04/09/18 04:00 101.0 84 20 126/66 (86) 97 04/09/18 00:00 99.3 104 20 116/66 (83) 96 04/08/18 22:30 101.3 General Appearance: no apparent distress, alert Neck: supple Cardiovascular: normal rate, regular rhythm Respiratory/Chest: lungs clear Abdomen: normal bowel sounds, non tender, soft Extremities: no swelling Intake and Output 04/08/18 04/09/18 19:00 07:00 Intake Total 1665 ml 550 ml Output Total 800 ml Balance 865 ml 550 ml Intake Oral 660 ml IV Total 1005 ml 550 ml Output Urine Total 800 ml # Voids 2 3 Laboratory Tests Test 04/08/18 22:00 04/09/18 04:50 Urine Color Pale yellow Urine Appearance Clear Urine pH 8 (4.5-8.0) Urine Specific [place]stock 1.015 (1.005-1.035) Urine Protein Negative (NEGATIVE) Urine Glucose (UA) Negative (NEGATIVE) Urine Ketones Negative (NEGATIVE) Urine Blood 1+ (NEGATIVE) H Urine Nitrite Negative (NEGATIVE) Urine Bilirubin Negative (NEGATIVE) Urine Urobilinogen Normal MG/DL (0.0-1.0) Urine Leukocyte Esterase 2+ (NEGATIVE) H Urine RBC 0-2 /HPF (0 - 2) Urine WBC 15-20 /HPF (0 - 2) H Urine Squamous Epithelial Cells Moderate /LPF (NONE/OCC) H Urine Bacteria Moderate /HPF (NONE) H White Blood Count 10.1 K/UL (4.8-10.8) Red Blood Count 4.46 M/UL (4.20-5.40) Hemoglobin 11.4 G/DL (12.0-16.0) L Hematocrit 34.4 % (37.0-47.0) L Mean Corpuscular Volume 77 FL (80-99) L Mean Corpuscular Hemoglobin 25.6 PG (27.0-31.0) L Mean Corpuscular Hemoglobin Concent 33.2 G/DL (32.0-36.0) Red Cell Distribution Width 11.9 % (11.6-14.8) Platelet Count 233 K/UL (150-450) Mean Platelet Volume 7.7 FL (6.5-10.1) Neutrophils (%) (Auto) 78.9 % (45.0-75.0) H Lymphocytes (%) (Auto) 13.7 % (20.0-45.0) L Monocytes (%) (Auto) 6.9 % (1.0-10.0) Eosinophils (%) (Auto) 0.0 % (0.0-3.0) Basophils (%) (Auto) 0.4 % (0.0-2.0) Sodium Level 137 MMOL/L (136-145) Potassium Level 4.0 MMOL/L (3.5-5.1) Chloride Level 102 MMOL/L (98-107) Carbon Dioxide Level 29 MMOL/L (21-32) Anion Gap 6 mmol/L (5-15) Blood Urea Nitrogen 6 mg/dL (7-18) L Creatinine 0.6 MG/DL (0.55-1.30) Estimat Glomerular Filtration Rate > 60 mL/min (>60) Glucose Level 159 MG/DL (74-106) H Calcium Level 8.6 MG/DL (8.5-10.1) Total Bilirubin 0.8 MG/DL (0.2-1.0) Aspartate Amino Transf (AST/SGOT) 50 U/L (15-37) H Alanine Aminotransferase (ALT/SGPT) 37 U/L (12-78) Alkaline Phosphatase 79 U/L (46-116) Total Protein 7.2 G/DL (6.4-8.2) Albumin 2.7 G/DL (3.4-5.0) L Globulin 4.5 g/dL Albumin/Globulin Ratio 0.6 (1.0-2.7) L Microbiology Date/Time Source Procedure Growth Status 04/07/18 06:55 Nasal Nares MRSA Culture - Final NO METHICILLIN RESISTANT STAPH AUREUS... Complete Joshua Armas MD Apr 09, 2018 22:01
--- NOTE | 2018-04-09 22:02 | Cardiology Progress Note ---
Assessment/Plan Assessment/Plan 1. Lumbar pain, now status post surgery. 2. History of gestational diabetes. 3. Hyperglycemia on preoperative blood testing. 4. post op fever IS use discussed with pt d/w rn no cx yet of blood or urine u/a was abn had fever again today will start abx for uti for now until cx availabel Subjective Subjective walked ate some no chills Objective Last 24 Hour Vital Signs Date Time Temp Pulse Resp B/P (MAP) Pulse Ox O2 Delivery O2 Flow Rate FiO2 04/09/18 20:39 99.8 92 19 114/76 (89) 97 04/09/18 16:07 101.3 04/09/18 16:00 100.5 95 19 134/77 (96) 95 04/09/18 12:28 101.4 83 19 142/88 (106) 99 04/09/18 09:00 Room Air Room Air 04/09/18 08:00 98.8 97 20 119/72 (88) 96 04/09/18 06:30 99.4 04/09/18 04:00 101.0 84 20 126/66 (86) 97 04/09/18 00:00 99.3 104 20 116/66 (83) 96 04/08/18 22:30 101.3 Intake and Output 04/08/18 04/09/18 19:00 07:00 Intake Total 1665 ml 550 ml Output Total 800 ml Balance 865 ml 550 ml Intake Oral 660 ml IV Total 1005 ml 550 ml Output Urine Total 800 ml # Voids 2 3 Laboratory Tests Test 04/09/18 04:50 White Blood Count 10.1 K/UL (4.8-10.8) Red Blood Count 4.46 M/UL (4.20-5.40) Hemoglobin 11.4 G/DL (12.0-16.0) L Hematocrit 34.4 % (37.0-47.0) L Mean Corpuscular Volume 77 FL (80-99) L Mean Corpuscular Hemoglobin 25.6 PG (27.0-31.0) L Mean Corpuscular Hemoglobin Concent 33.2 G/DL (32.0-36.0) Red Cell Distribution Width 11.9 % (11.6-14.8) Platelet Count 233 K/UL (150-450) Mean Platelet Volume 7.7 FL (6.5-10.1) Neutrophils (%) (Auto) 78.9 % (45.0-75.0) H Lymphocytes (%) (Auto) 13.7 % (20.0-45.0) L Monocytes (%) (Auto) 6.9 % (1.0-10.0) Eosinophils (%) (Auto) 0.0 % (0.0-3.0) Basophils (%) (Auto) 0.4 % (0.0-2.0) Sodium Level 137 MMOL/L (136-145) Potassium Level 4.0 MMOL/L (3.5-5.1) Chloride Level 102 MMOL/L (98-107) Carbon Dioxide Level 29 MMOL/L (21-32) Anion Gap 6 mmol/L (5-15) Blood Urea Nitrogen 6 mg/dL (7-18) L Creatinine 0.6 MG/DL (0.55-1.30) Estimat Glomerular Filtration Rate > 60 mL/min (>60) Glucose Level 159 MG/DL (74-106) H Calcium Level 8.6 MG/DL (8.5-10.1) Total Bilirubin 0.8 MG/DL (0.2-1.0) Aspartate Amino Transf (AST/SGOT) 50 U/L (15-37) H Alanine Aminotransferase (ALT/SGPT) 37 U/L (12-78) Alkaline Phosphatase 79 U/L (46-116) Total Protein 7.2 G/DL (6.4-8.2) Albumin 2.7 G/DL (3.4-5.0) L Globulin 4.5 g/dL Albumin/Globulin Ratio 0.6 (1.0-2.7) L Microbiology Date/Time Source Procedure Growth Status 04/07/18 06:55 Nasal Nares MRSA Culture - Final NO METHICILLIN RESISTANT STAPH AUREUS... Complete Joshua Armas MD Apr 09, 2018 22:02
[2018-04-09] MEDS: Hydromorphone 0.5mg/0.5ml inj SUBQ PRN (23:58)
[2018-04-10 00:15] VITALS: BP 111/60
[2018-04-10 04:52] VITALS: BP 97/69
[2018-04-10] MEDS ORDERED: Milk of Magnesia 30ml Ud ORAL ONE (06:00)
[2018-04-10] MEDS: Insulin NovoLOG Flexpen S/S (insulin sensitive) SUBQ SCH ×3 (06:14→17:20)
[2018-04-10 08:00] VITALS: BP 108/71
[2018-04-10] MEDS: Sennosides 8.6mg tab ORAL SCH ×2 (08:08→17:17)
[2018-04-10] MEDS: Docusate 100mg cap ORAL SCH ×2 (08:08→17:17)
[2018-04-10 12:00] VITALS: BP 103/64
[2018-04-10 16:00] VITALS: BP 118/74
[2018-04-10] MEDS ORDERED: PERCOCET 5-3251 EACH ORAL (18:41)
[2018-04-10] MEDS ORDERED: Tubing IV Secondary IV ONE (19:49)
[2018-04-10] MEDS ORDERED: D5 1/2NS 1000ml IV ONE (19:49)
[2018-04-10] MEDS ORDERED: LR 1000ml ONE (19:49)
--- NOTE | 2018-04-14 15:46 | Discharge Summary ---
Discharge Summary Hospital Course Date of Admission Apr 07, 2018 at 06:18 Date of Discharge Apr 10, 2018 at 19:50 Admitting Diagnosis L5 S1 spondylolytic unstable spondylolisthesis Reason for Hospitalization: elective surgery LEX Sethi is a 42 year old female who was admitted on Apr 07, 2018 at 06:18 for spinal foraminal stenosis with unstable spondylolisthesis at L5-S1. Patient was admitted for elective surgery Consultations dr Armas - IM/cardio dr Ingram - pain specialist Procedures s/p 04/07/[address] Ann ( neurosurgeon) 1. Wide and radical diskectomy at L5-S1 performed through an anterior approach for decompression of neural foramen. 2. Placement of interbody fusion device (4-WEB). 3. Anterior instrumentation with kickout plate Eminent Spine. 4. Use of BMP for fusion purposes. 5. Use of allograft (Signafuse). 6. Use of fluoroscopy. 7. Neurodiagnostic monitoring. s/p 04/07/[address] Ann ( neurosurgeon), done after anterior diskectomy and fusion requiring posterior stabilization. 1. Posterior spinal fusion, nonsegmental at L5-S1, using cannulated pedicle screw system (spinal elements). 2. Posterior spinal fusion at L5-S1. 3. Bilateral foraminotomy at L5-S1 from an outside-in approach. 4. Use of fluoroscopy. 5. Neurodiagnostic monitoring with pedicle screw stimulation. 6. Use of allograft (Bacterin bone strip). s/p 06/07/[address] Montanez ( vascular approach) 1. Muscle sparing anterior abdominal retroperitoneal approach for anterior lumbar interbody fusion. 2. Plastic closure repair of abdominal wound. Hospital Course s/p surgery , which was done in two steps: initially anterior discectomy and fusion was done, but further required posterior stabilization initially IV fluids s/p perioperative antibiotics neurovascular status closely monitored, stable incision clean dry and intact pain management addressed pain specialist followed; pain controlled hemodynamically stable ambulated with PT fall precautions maintained; safe for ambulation tolerated diet , IV fluids discontinued GI prophylaxis provided antiemetics were on board as needed noted postoperative fever started on empiric antibiotics workup for fever negative: urine and blood cx negative CXR no acute cardiopulmonary pathology, no leukocytosis possible due to atelectasis patient was encouraged to be out of bed as tolerated and use incentive spirometry while in the bed q 1 hr x 10 blood sugar was monitored, in 120-150 range, patient obese recommended outpatient fup with primary care provider, need to check HgA1c, may need to start anti-glycemic/Metformin and initiate measures to reduce weight patient was educated on no concentrated sweets diet voided freely bowel regimen instituted patient was stable for discharge discharge instructions provided regarding activity allowed, and body mechanics follow up with surgeon as outpatietn as advised by surgeon FINAL DIAGNOSIS Spinal foraminal stenosis with unstable spondylolisthesis at L5-S1. s/p ALIF, PSF L5-S1 History of gestational diabetes. Hyperglycemia on preoperative blood testing. Post op fever Discharge Medications Continued Medications: Oxycodone/Acetaminophen 5-325* (Percocet 5-325 Mg Tablet*) 1 Each Tablet 1 TAB ORAL Q4H PRN for For Pain, #60 TAB (This prescription has been renewed) Discharge Condition Upon Discharge: stable Discharge Disposition Patient was discharged to Home (01) Discharge Instructions Discharge Instructions Special Instructions I have been assigned to complete a D/C Summary on this account. I was not involved in the patient management Michaela Arias NP Apr 14, 2018 15:46
--- NOTE | 2018-04-16 16:48 | Diagnostic Imaging Report ---
INDICATION: Pain, intraoperative TECHNIQUE: Intraoperative imaging Fluoroscopy time: 65.8 seconds Total dose: [id number] mGym2 Total number of images: 5 COMPARISON: None FINDINGS: Intraoperative images demonstrate surgical tool at the anterior aspect of what is presumably the L5-S1 disc. Subsequent images demonstrate placement of a disc spacer and anterior fusion hardware at this level, subsequent placement of posterior fusion hardware IMPRESSION: Intraoperative imaging, as described
== END 2018-04-10 19:50 | disposition home or self-care (01) | DRG 454 ==
LOC: SDSOVERFLO 06:18 → 3E 15:15
PROC: 4A11X4G Monitoring of Peripheral Nervous Electrical Activity, Intraoperative, External Approach (ICD-10-PCS; principal; 2018-04-07 08:00)
PROC: 0SG30J1 Fusion of Lumbosacral Joint with Synthetic Substitute, Posterior Approach, Posterior Column, Open Approach (ICD-10-PCS; principal; 2018-04-07 08:00)
PROC: 0ST40ZZ Resection of Lumbosacral Disc, Open Approach (ICD-10-PCS; principal; 2018-04-07 08:00)
PROC: 3E0U0GB Introduction of Recombinant Bone Morphogenetic Protein into Joints, Open Approach (ICD-10-PCS; principal; 2018-04-07 08:00)
PROC: 0SG30A0 Fusion of Lumbosacral Joint with Interbody Fusion Device, Anterior Approach, Anterior Column, Open Approach (ICD-10-PCS; principal; 2018-04-07 08:00)
DX: M43.17 Spondylolisthesis, lumbosacral region (principal); J98.11 Atelectasis; M48.07 Spinal stenosis, lumbosacral region; R73.9 Hyperglycemia, unspecified; G89.18 Other acute postprocedural pain; R11.2 Nausea with vomiting, unspecified; R50.82 Postprocedural fever
CPT/HCPCS: 36415; 71045; 72020; 76001; 80048; 80053; 81001; 81025; 82962; 85007; 85025; 86850; 86900; 86901; 87040; 87081; 87086; 94003; 94150; J1815; J2405; J2765